=== PATIENT | female | born 1980 | race African-American/Black ===

== ENCOUNTER 2017-06-29 03:33 | Inpatient (IN) | payer MEDICAID, SELFPAY ==
[2017-06-29] MEDS ORDERED: Sodium Chloride 0.9% 10 ML Syringe FLUSH PRN (10:48)
[2017-06-29] MEDS ORDERED: Nalbuphine 20 MG/1 ML Amp IVPUSH PRN (10:48)
[2017-06-29] MEDS ORDERED: Ondansetron 4 MG/2 ML SDV IVPUSH PRN (10:50)
[2017-06-29] MEDS ORDERED: Oxytocin/Lactated Ringers 10 UNIT/1,000 ML BAG IV SCH ×2 (11:00)
[2017-06-29] MEDS ORDERED: Misoprostol 25 MCG (1/4 of 100 MCG) Tab ONE (11:22)
[2017-06-29] MEDS ORDERED: Ampicillin 2 GM in Sodium Chloride 0.9% 100 ML IV ONE (11:30)
[2017-06-29] MEDS: Misoprostol 25 MCG (1/4 of 100 MCG) Tab VAG SCH ×3 (11:33→18:00)
[2017-06-29] MEDS: Lactated Ringers 1,000 ML IV SCH ×2 (17:45→21:09)
[2017-06-29] MEDS ORDERED: ePHEDrine 50 MG/ML SDV IVPUSH PRN (18:14)
[2017-06-29] MEDS ORDERED: diphenhydrAMINE 50 MG/ML SDV IVPUSH PRN (18:14)
[2017-06-29] MEDS ORDERED: fentaNYL 100 MCG/2 ML SDV EPIDUR PRN (18:14)
[2017-06-29] MEDS ORDERED: Bupivacaine/fentaNYL/NS 100 ML Bag EPIDUR SCH (18:15)
--- NOTE | 2017-06-29 18:46 | PCM.PREANE ---
Preanesthetic Assessment - Anesthesia/Transfusion/Family Hx Anesthesia History: Prior Anesthesia Without Reaction Family History of Anesthesia Reaction: No Transfusion History: No Prior Transfusion(s) - Review of Systems General: No Symptoms Pulmonary: No Symptoms Cardiovascular: No Symptoms Gastrointestinal: No Symptoms Neurological: No Symptoms Other: Reports: None - Physical Assessment Pulse: 102 O2 Sat by Pulse Oximetry: 100 Respiratory Rate: 16 Blood Pressure: 148/92 Vital Signs: Last Vital Signs Temp 36.2 C 06/29/17 10:59 Pulse 102 H 06/29/17 16:31 Resp 16 06/29/17 10:59 BP 148/92 H 06/29/17 15:31 Pulse Ox 100 06/29/17 10:59 Height: 1.73 m Weight: 97.931 kg ASA Class: 2 Mental Status: Alert & Oriented x3 Airway Class: Mallampati = 1 Dentition: Reports: Normal Dentition Thyro-Mental Finger Breadths: 3 Mouth Opening Finger Breadths: 3 ROM/Head Extension: Full Lungs: Clear to Auscultation, Normal Respiratory Effort Cardiovascular: Regular Rate, Regular Rhythm - Lab Values: Laboratory Last Values WBC 9.84 K/mm3 (3.98-10.04) 06/29/17 11:08 RBC 3.91 M/mm3 (3.98-5.22) L 06/29/17 11:08 Hgb 9.9 gm/L (11.2-15.7) L 06/29/17 11:08 Hct 29.1 % (34.1-44.9) L 06/29/17 11:08 MCV 74.4 fl (79.4-94.8) L 06/29/17 11:08 MCH 25.3 pg (25.6-32.2) L 06/29/17 11:08 MCHC 34.0 g/dl (32.2-35.5) 06/29/17 11:08 RDW Std Deviation 47.2 fL (36.4-46.3) H 06/29/17 11:08 Plt Count 190 K/mm3 (182-369) 06/29/17 11:08 MPV TNP 06/29/17 11:08 Neut % (Auto) 71.3 % (34.0-71.1) H 06/29/17 11:08 Lymph % (Auto) 20.0 % (19.3-51.7) 06/29/17 11:08 [place] % (Auto) 7.6 % (4.7-12.5) 06/29/17 11:08 Eos % (Auto) 0.8 (0.7-5.8) 06/29/17 11:08 Baso % (Auto) 0.1 % (0.1-1.2) 06/29/17 11:08 Neut # (Auto) 7.01 K/mm3 (1.56-6.13) H 06/29/17 11:08 Lymph # (Auto) 1.97 K/mm3 (1.18-3.74) 06/29/17 11:08 [place] # (Auto) 0.75 K/mm3 (0.24-0.36) H 06/29/17 11:08 Eos # (Auto) 0.08 K/mm3 (0.04-0.36) 06/29/17 11:08 Baso # (Auto) 0.01 K/mm3 (0.01-0.08) 06/29/17 11:08 Manual Slide Review Abnormal smear 06/29/17 11:08 POC Glucose 121 mg/dL (70-105) H 06/29/17 15:40 Blood Type A POSITIVE 06/29/17 11:08 Gel Antibody Screen Negative 06/29/17 11:08 - Allergies Allergies/Adverse Reactions: Allergies Allergy/AdvReac Type Severity Reaction Status Date / Time No Known Allergies Allergy Verified 06/29/17 10:48 - Anesthesia Plan Pre-Op Medication Ordered: None - Acknowledgements Anesthesia Type Planned: Epidural Pt an Appropriate Candidate for the Planned Anesthesia: Yes Alternatives and Risks of Anesthesia Discussed w Pt/Guardian: Yes Pt/Guardian Understands and Agrees with Anesthesia Plan: Yes 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: 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/Metabolic History: Reports: Diabetes, Gestational - SUBSTANCE USE Smoking Status *Q: Never Smoker Recreational Drug Use History: No - HOME MEDS Home Medications: Home Meds Vit W-Ca,Fe,FA(<1 mg) [ Vitamins] 1 tab PO DAILY 06/29/17 [ History] - CURRENT (IN HOUSE) MEDS Current Meds: Current Medications Diphenhydramine HCl (Benadryl) 25 mg IVPUSH Q6H PRN PRN Reason: Itching Ephedrine Sulfate (Ephedrine Sulfate) 5 mg IVPUSH ASDIRECTED PRN PRN Reason: HYPOTENTSION Fentanyl (Sublimaze) 100 mcg EPIDUR Q3H PRN PRN Reason: PAIN Last Admin: 06/29/17 18:34 Dose: 100 mcg Fentanyl/Bupivacaine HCl (Fentanyl/Bupivacaine/Ns 2 Mcg-0.125% 100 Ml) 100 ml EPIDUR ASDIRECTED TWYLA Last Admin: 06/29/17 18:35 Dose: 100 ml Ampicillin Sodium 1 gm/ Sodium (Chloride) 100 mls @ 200 mls/hr IV Q4H TWYLA Lactated Ringer's (Ringers, Lactated) 1,000 mls @ 100 mls/hr IV ASDIRECTED TWYLA Last Admin: 06/29/17 17:45 Dose: 100 mls/hr Oxytocin/Lactated Ringer's (Pitocin In Lr 10 Units/1,000 Ml) 10 unit in 1,000 mls @ 500 mls/hr IV .CONTINUOUS TWYLA Oxytocin/Lactated Ringer's (Pitocin In Lr 10 Units/1,000 Ml) 10 unit in 1,000 mls @ 12 mls/hr IV TITRATE TWYLA; 2 MUNITS/MIN PRN Reason: Protocol Misoprostol (Cytotec) 25 mcg VAG Q4H [facility] Stop: 06/29/17 22:01 Last Admin: 06/29/17 18:00 Dose: Not Given Nalbuphine HCl (Nubain) 10 mg IVPUSH Q2H PRN PRN Reason: Pain (moderate 4-6) Ondansetron HCl (Zofran) 4 mg IVPUSH Q4H PRN PRN Reason: Nausea/Vomiting Sodium Chloride (Saline Flush) 10 ml FLUSH ASDIRECTED PRN PRN Reason: Keep Vein Open Discontinued Medications Ampicillin Sodium 2 gm/ Sodium (Chloride) 100 mls @ 200 mls/hr IV ONETIME ONE Stop: 06/29/17 11:59 Last Admin: 06/29/17 17:46 Dose: 200 mls/hr Misoprostol (Cytotec) Confirm Administered Dose 25 mcg .ROUTE .STK-MED ONE Stop: 06/29/17 11:23 Last Admin: 06/29/17 11:33 Dose: Not Given
[2017-06-29] MEDS: Ampicillin 1 GM in Sodium Chloride 0.9% 100 ML IV SCH (21:12)
[2017-06-30] MEDS: Ampicillin 1 GM in Sodium Chloride 0.9% 100 ML IV SCH ×2 (01:08→11:38)
[2017-06-30] MEDS: Misoprostol 25 MCG (1/4 of 100 MCG) Tab VAG SCH (01:09)
[2017-06-30] MEDS ORDERED: Metoclopramide 10 MG/2 ML SDV IVPUSH ONE (02:33)
[2017-06-30] MEDS ORDERED: Sodium Chloride 0.9% 10 ML Syringe FLUSH PRN (02:33)
[2017-06-30] MEDS ORDERED: Citric Acid/Sodium Citrate Solution 30 ML Cup PO ONE (02:33)
[2017-06-30] MEDS ORDERED: ceFAZolin 2 GM in Premix Bag 1 BAG IV ONE (02:33)
--- NOTE | 2017-06-30 02:39 | PCM.PNLD ---
Labor Progress Note - VS & Meds Vital Signs: Last Vital Signs Temp 36.2 C 06/29/17 10:59 Pulse 102 H 06/29/17 18:46 Resp 16 06/29/17 18:46 BP 148/92 H 06/29/17 18:46 Pulse Ox 100 06/29/17 18:46 Active Medications: Current Medications Diphenhydramine HCl (Benadryl) 25 mg IVPUSH Q6H PRN PRN Reason: Itching Ephedrine Sulfate (Ephedrine Sulfate) 5 mg IVPUSH ASDIRECTED PRN PRN Reason: HYPOTENTSION Fentanyl (Sublimaze) 100 mcg EPIDUR Q3H PRN PRN Reason: PAIN Last Admin: 06/29/17 18:34 Dose: 100 mcg Fentanyl/Bupivacaine HCl (Fentanyl/Bupivacaine/Ns 2 Mcg-0.125% 100 Ml) 100 ml EPIDUR ASDIRECTED TWYLA Last Admin: 06/29/17 18:35 Dose: 100 ml Ampicillin Sodium 1 gm/ Sodium (Chloride) 100 mls @ 200 mls/hr IV Q4H TWYLA Last Admin: 06/30/17 01:08 Dose: 200 mls/hr Lactated Ringer's (Ringers, Lactated) 1,000 mls @ 100 mls/hr IV ASDIRECTED TWYLA Last Admin: 06/29/17 21:09 Dose: 100 mls/hr Oxytocin/Lactated Ringer's (Pitocin In Lr 10 Units/1,000 Ml) 10 unit in 1,000 mls @ 500 mls/hr IV .CONTINUOUS TWYLA Oxytocin/Lactated Ringer's (Pitocin In Lr 10 Units/1,000 Ml) 10 unit in 1,000 mls @ 12 mls/hr IV TITRATE TWYLA; 2 MUNITS/MIN PRN Reason: Protocol Nalbuphine HCl (Nubain) 10 mg IVPUSH Q2H PRN PRN Reason: Pain (moderate 4-6) Ondansetron HCl (Zofran) 4 mg IVPUSH Q4H PRN PRN Reason: Nausea/Vomiting Sodium Chloride (Saline Flush) 10 ml FLUSH ASDIRECTED PRN PRN Reason: Keep Vein Open Discontinued Medications Ampicillin Sodium 2 gm/ Sodium (Chloride) 100 mls @ 200 mls/hr IV ONETIME ONE Stop: 06/29/17 11:59 Last Admin: 06/29/17 17:46 Dose: 200 mls/hr Misoprostol (Cytotec) 25 mcg VAG Q4H TWY[facility] Stop: 06/29/17 22:01 Last Admin: 06/30/17 01:09 Dose: Not Given Misoprostol (Cytotec) Confirm Administered Dose 25 mcg .ROUTE .STK-MED ONE Stop: 06/29/17 11:23 Last Admin: 06/29/17 11:33 Dose: Not Given - Uterine Contractions Contraction Intensity: Moderate to Strong Uterine Resting Tone: Soft - Monitoring Heart Rate (FHR) Variability: Moderate (6-25 bmp) Accelerations: Present, 15x15 - Vaginal Exam Dilation (cm): 4 Effacement (Percent): 100 Station: -3 Cervical Position: Midposition Sterile Vaginal Exam Performed By: Mayra Walter - Labor Progress (Free Text) Labor Progress: Excellent progress with cytotec. SROM meconium stained fluid with cervix check.
--- NOTE | 2017-06-30 02:44 | PCM.LDHP ---
L&D History of Present Illness - General Date of Service: 06/29/17 Admit Problem/Dx: Patient Status Order with Admit Dx/Problem 06/29/17 10:48 Patient Status [ADT] Routine Admission Diagnosis/Problem Admission Diagnosis/Problem Gestational diabetes mellitus Source of Information: Patient, Family, Appraiser - History of Present Illness Introduction:: 36 year old female at 40w1d here for induction of labor for gestational diabetes, age and term . PNC with myself complicated by -gestational diabetes -sickle cell trait -AMA -declined workup History through center director her Danielito. He has translated in clinic as well and we also have used iPad translation which she declines now. 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: Endocrine/Metabolic History: Reports: Diabetes, Gestational Social & Family History - Family History Family Medical History: Noncontributory - Tobacco Use Smoking Status *Q: Never Smoker - Caffeine Use Caffeine Use: Reports: None - Recreational Drug Use Recreational Drug Use: No H&P Review of Systems - Review of Systems: Review Of Systems: See Below General: Reports: No Symptoms HEENT: Reports: No Symptoms Pulmonary: Reports: No Symptoms Cardiovascular: Reports: No Symptoms Gastrointestinal: Reports: No Symptoms Genitourinary: Reports: No Symptoms Musculoskeletal: Reports: No Symptoms Skin: Reports: No Symptoms Psychiatric: Reports: No Symptoms Neurological: Reports: No Symptoms Hematologic/Lymphatic: Reports: No Symptoms Immunologic: Reports: No Symptoms L&D Exam - Exam Exam: See Below - Vital Signs Vital Signs: Last Vital Signs Temp 36.2 C 06/29/17 10:59 Pulse 102 H 06/29/17 18:46 Resp 16 06/29/17 18:46 BP 148/92 H 06/29/17 18:46 Pulse Ox 100 06/29/17 18:46 Weight: 97.931 kg - OB Specific Contraction Intensity: Moderate to Strong Heart Rate (FHR) Variability: Moderate (6-25 bmp) Presentation: Vertex - Doan Score Doan Score Cervix Position: Posterior Doan Score Consistency: Medium Doan Score Effacement: 0-30% Doan Score Dilation: 1-2 cm Doan Score 's Station: -3 Doan Score Total: 2 - Exam General: Alert, Oriented HEENT: PERRLA, Conjunctiva Clear, EACs Clear, EOMI, Hearing Intact, Mucosa Moist & [place], Nares Patent, Normal Nasal Septum, Posterior Pharynx Clear, TMs Clear Neck: Supple, Trachea Midline Lungs: Clear to Auscultation, Normal Respiratory Effort Cardiovascular: Regular Rate, Regular Rhythm GI/Abdominal Exam: Normal Bowel Sounds, Soft, Non-Tender, No Organomegaly, No Distention, No Abnormal Bruit, No Mass, Pelvis Stable Back Exam: Normal Inspection, Full Range of Motion Extremities: Normal Inspection, Normal Range of Motion, Non-Tender, No Pedal Edema, Normal Capillary Refill Skin: Warm, Dry, Intact Neurological: Cranial Nerves Intact, Reflexes Equal Bilateral Psychiatric: Alert, Normal Affect, Normal Mood - Patient Data Lab Results Last 24 hrs: Laboratory Results - last 24 hr 06/29/17 06/29/17 06/29/17 Range/Units 11:08 11:08 15:40 WBC 9.84 (3.98-10.04) K/mm3 RBC 3.91 L (3.98-5.22) M/mm3 Hgb 9.9 L (11.2-15.7) gm/L Hct 29.1 L (34.1-44.9) % MCV 74.4 L (79.4-94.8) fl MCH 25.3 L (25.6-32.2) pg MCHC 34.0 (32.2-35.5) g/dl RDW Std Deviation 47.2 H (36.4-46.3) fL Plt Count 190 (182-369) K/mm3 MPV TNP Neut % (Auto) 71.3 H (34.0-71.1) % Lymph % (Auto) 20.0 (19.3-51.7) % [place] % (Auto) 7.6 (4.7-12.5) % Eos % (Auto) 0.8 (0.7-5.8) Baso % (Auto) 0.1 (0.1-1.2) % Neut # (Auto) 7.01 H (1.56-6.13) K/mm3 Lymph # (Auto) 1.97 (1.18-3.74) K/mm3 [place] # (Auto) 0.75 H (0.24-0.36) K/mm3 Eos # (Auto) 0.08 (0.04-0.36) K/mm3 Baso # (Auto) 0.01 (0.01-0.08) K/mm3 Manual Slide Review Abnormal smear POC Glucose 121 H (70-105) mg/dL Blood Type A POSITIVE Gel Antibody Screen Negative Result Diagrams: 06/29/17 11:08 - Problem List (1) Gestational diabetes mellitus (GDM) affecting , antepartum SNOMED Code(s): 460701540 ICD Code: O24.919 - UNSP DIABETES MELLITUS IN , UNSPECIFIED TRIMESTER Status: Acute Current Visit: Yes (2) Advanced maternal age (AMA) in SNOMED Code(s): 913356728 ICD Code: [id number] - Status: Acute Current Visit: Yes Problem List Initiated/Reviewed/Updated: Yes Orders Last 24hrs: Active Orders 24 hr Category Date Time Status Patient Status [ADT] Routine ADT 06/29/17 10:48 Active Activity as Tolerated [RC] PFP Care 06/29/17 10:48 Active Blood Glucose Check, Bedside [RC] ONETIME Care 06/30/17 02:33 Ordered Communication Order [RC] ASDIRECTED Care 06/29/17 10:48 Active Communication Order [RC] ASDIRECTED Care 06/29/17 18:13 Active Communication Order [RC] ROUTINE Care 06/30/17 02:36 Ordered Cooling Warming Measures [RC] ASDIRECTED Care 06/29/17 18:13 Active Heart Tones [RC] ASDIRECTED Care 06/29/17 10:49 Active Heart Tones [RC] PER UNIT ROUTINE Care 06/30/17 02:36 Ordered Notify Provider [RC] ASDIRECTED Care 06/29/17 18:13 Active Notify Provider [RC] PFP Care 06/29/17 10:48 Active Notify Provider [RC] PRN Care 06/29/17 10:48 Active Oxygen Therapy [RC] ASDIRECTED Care 06/29/17 18:13 Active Peripheral IV Care [RC] . DIRECTED Care 06/29/17 10:49 Active Peripheral IV Care [RC] . DIRECTED Care 06/30/17 02:37 Ordered Procedure Site Prep Instruct [RC] ASDIRECTED Care 06/30/17 02:36 Ordered Pulse Oximetry [RC] ASDIRECTED Care 06/29/17 18:13 Active Urinary Catheter Assessment [RC] ASDIRECTED Care 06/29/17 18:12 Active Urinary Catheter Insertion [Insert Urinary Catheter] [ Care 06/29/17 18:15 Ordered OM.PC] Q24H Verify Patient Consent Obtain [RC] ASDIRECTED Care 06/29/17 18:14 Active Verify Patient Consent Obtain [RC] PER UNIT ROUTINE Care 06/30/17 02:36 Ordered Vital Signs [RC] PER UNIT ROUTINE Care 06/29/17 10:50 Active Vital Signs [RC] PFP Care 06/30/17 02:36 Ordered Regular Diet [DIET] Diet 06/29/17 Lunch Active PATIENT RETYPE [BBK] Stat Lab 06/29/17 11:08 Results TYPE AND SCREEN [BBK] Stat Lab 06/29/17 11:08 Results Ampicillin 1 gm Med 06/29/17 15:30 Active Sodium Chloride 0.9% [Normal Saline] 100 ml IV Q4H Bupivacaine/fentaNYL/NS [fentaNYL/Bupivacaine/NS 2 MCG- Med 06/29/17 18:15 Active 0.125% 100 ML] 100 ml EPIDUR ASDIRECTED Citric Acid/Sodium Citrate [Bicitra Solution] Med 06/30/17 02:33 Once 30 ml PO ONETIME ONE FLU Vacc [id number](6MOS UP)/PF [Flulaval Quad 8528-1000 Med 06/30/17 10:00 Once ] 60 mcg IM ONETIME ONE Lactated Ringers @ 125 MLS/HR(1000ml) Med 06/30/17 02:45 Ordered Lactated Ringers [Ringers, Lactated] 1,000 ml IV ASDIRECTED Lactated Ringers [Ringers, Lactated] 1,000 ml Med 06/29/17 11:00 Active IV ASDIRECTED Metoclopramide [Reglan] Med 06/30/17 02:33 Once 10 mg IVPUSH ONETIME ONE Nalbuphine [Nubain] Med 06/29/17 10:48 Active 10 mg IVPUSH Q2H PRN Ondansetron [Zofran] Med 06/29/17 10:50 Active 4 mg IVPUSH Q4H PRN Oxytocin/Lactated Ringers [Pitocin in LR 10 Units/1,000 Med 06/29/17 11:00 Active ML] 10 unit in 1,000 ml IV .CONTINUOUS Oxytocin/Lactated Ringers [Pitocin in LR 10 Units/1,000 Med 06/29/17 11:00 Active ML] 10 unit in 1,000 ml IV TITRATE Sodium Chloride 0.9% [Saline Flush] Med 06/29/17 10:48 Active 10 ml FLUSH ASDIRECTED PRN Sodium Chloride 0.9% [Saline Flush] Med 06/30/17 02:33 Ordered 10 ml FLUSH ASDIRECTED PRN ceFAZolin [Ancef] 2 gm Med 06/30/17 02:33 Ordered Premix Bag 1 bag IV ONETIME diphenhydrAMINE [Benadryl] Med 06/29/17 18:14 Active 25 mg IVPUSH Q6H PRN ePHEDrine [ePHEDrine Sulfate] Med 06/29/17 18:14 Active 5 mg IVPUSH ASDIRECTED PRN fentaNYL [Sublimaze] Med 06/29/17 18:14 Active 100 mcg EPIDUR Q3H PRN Electronic Heart Tones Ext w TOCO [WOMSER] Ot 06/29/17 10:48 Ordered Routine Electronic Heart Tones Internal [WOMSER] Per Unit Ot 06/29/17 10:48 Ordered Routine Peripheral IV Insertion Adult [OM.PC] Routine Ot 06/29/17 10:48 Ordered Peripheral IV Insertion Adult [OM.PC] Routine Ot 06/30/17 02:36 Ordered Schedule Procedure [COMM] Per Unit Routine Ot 06/30/17 02:36 Ordered Resuscitation Status Routine Resus Stat 06/29/17 10:48 Ordered Medication Orders Citric Acid/Sodium Citrate (Bicitra Solution) 30 ml PO ONETIME ONE Stop: 06/30/17 02:34 Diphenhydramine HCl (Benadryl) 25 mg IVPUSH Q6H PRN PRN Reason: Itching Ephedrine Sulfate (Ephedrine Sulfate) 5 mg IVPUSH ASDIRECTED PRN PRN Reason: HYPOTENTSION Fentanyl (Sublimaze) 100 mcg EPIDUR Q3H PRN PRN Reason: PAIN Last Admin: 06/29/17 18:34 Dose: 100 mcg Fentanyl/Bupivacaine HCl (Fentanyl/Bupivacaine/Ns 2 Mcg-0.125% 100 Ml) 100 ml EPIDUR ASDIRECTED [facility] Last Admin: 06/29/17 18:35 Dose: 100 ml Ampicillin Sodium 1 gm/ Sodium (Chloride) 100 mls @ 200 mls/hr IV Q4H TWY[facility] Last Admin: 06/30/17 01:08 Dose: 200 mls/hr Infusion: 06/29/17 21:42 Dose: 200 mls/hr Admin: 06/29/17 21:12 Dose: 200 mls/hr Lactated Ringer's (Ringers, Lactated) 1,000 mls @ 100 mls/hr IV ASDIRECTED [facility] Last Admin: 06/29/17 21:09 Dose: 100 mls/hr Infusion: 06/29/17 21:09 Dose: 100 mls/hr Admin: 06/29/17 17:45 Dose: 100 mls/hr Oxytocin/Lactated Ringer's (Pitocin In Lr 10 Units/1,000 Ml) 10 unit in 1,000 mls @ 500 mls/hr IV .CONTINUOUS TWYLA Oxytocin/Lactated Ringer's (Pitocin In Lr 10 Units/1,000 Ml) 10 unit in 1,000 mls @ 12 mls/hr IV TITRATE TWYLA; 2 MUNITS/MIN PRN Reason: Protocol Cefazolin Sodium/Dextrose 2 gm (/ Premix) 50 mls @ 100 mls/hr IV ONETIME ONE Stop: 06/30/17 03:02 Lactated Ringer's (Ringers, Lactated) 1,000 mls @ 125 mls/hr IV ASDIRECTED [facility] Metoclopramide HCl (Reglan) 10 mg IVPUSH ONETIME ONE Stop: 06/30/17 02:34 Nalbuphine HCl (Nubain) 10 mg IVPUSH Q2H PRN PRN Reason: Pain (moderate 4-6) Ondansetron HCl (Zofran) 4 mg IVPUSH Q4H PRN PRN Reason: Nausea/Vomiting Sodium Chloride (Saline Flush) 10 ml FLUSH ASDIRECTED PRN PRN Reason: Keep Vein Open Sodium Chloride (Saline Flush) 10 ml FLUSH ASDIRECTED PRN PRN Reason: Keep Vein Open Assessment/Plan Comment:: 36 year old here with induction of labor. Cytotec now. Blood sugars 2 hours post meals and q1-2 hours in active labor Antibiotics for GBS Anticipate unless otherwise indicated.
[2017-06-30] MEDS ORDERED: Lactated Ringers 1,000 ML IV SCH (02:45)
--- NOTE | 2017-06-30 02:49 | PCM.PNLD ---
Labor Progress Note - VS & Meds Vital Signs: Last Vital Signs Temp 36.2 C 06/29/17 10:59 Pulse 102 H 06/29/17 18:46 Resp 16 06/29/17 18:46 BP 148/92 H 06/29/17 18:46 Pulse Ox 100 06/29/17 18:46 Active Medications: Current Medications Diphenhydramine HCl (Benadryl) 25 mg IVPUSH Q6H PRN PRN Reason: Itching Ephedrine Sulfate (Ephedrine Sulfate) 5 mg IVPUSH ASDIRECTED PRN PRN Reason: HYPOTENTSION Fentanyl (Sublimaze) 100 mcg EPIDUR Q3H PRN PRN Reason: PAIN Last Admin: 06/29/17 18:34 Dose: 100 mcg Fentanyl/Bupivacaine HCl (Fentanyl/Bupivacaine/Ns 2 Mcg-0.125% 100 Ml) 100 ml EPIDUR ASDIRECTED TW[facility] Last Admin: 06/29/17 18:35 Dose: 100 ml Ampicillin Sodium 1 gm/ Sodium (Chloride) 100 mls @ 200 mls/hr IV Q4H [facility] Last Admin: 06/30/17 01:08 Dose: 200 mls/hr Lactated Ringer's (Ringers, Lactated) 1,000 mls @ 100 mls/hr IV ASDIRECTED TWY[facility] Last Admin: 06/29/17 21:09 Dose: 100 mls/hr Oxytocin/Lactated Ringer's (Pitocin In Lr 10 Units/1,000 Ml) 10 unit in 1,000 mls @ 500 mls/hr IV .CONTINUOUS TWYLA Oxytocin/Lactated Ringer's (Pitocin In Lr 10 Units/1,000 Ml) 10 unit in 1,000 mls @ 12 mls/hr IV TITRATE TWYLA; 2 MUNITS/MIN PRN Reason: Protocol Cefazolin Sodium/Dextrose 2 gm (/ Premix) 50 mls @ 100 mls/hr IV ONETIME ONE Stop: 06/30/17 03:02 Lactated Ringer's (Ringers, Lactated) 1,000 mls @ 125 mls/hr IV ASDIRECTED [facility] Nalbuphine HCl (Nubain) 10 mg IVPUSH Q2H PRN PRN Reason: Pain (moderate 4-6) Ondansetron HCl (Zofran) 4 mg IVPUSH Q4H PRN PRN Reason: Nausea/Vomiting Sodium Chloride (Saline Flush) 10 ml FLUSH ASDIRECTED PRN PRN Reason: Keep Vein Open Sodium Chloride (Saline Flush) 10 ml FLUSH ASDIRECTED PRN PRN Reason: Keep Vein Open Discontinued Medications Citric Acid/Sodium Citrate (Bicitra Solution) 30 ml PO ONETIME ONE Stop: 06/30/17 02:34 Ampicillin Sodium 2 gm/ Sodium (Chloride) 100 mls @ 200 mls/hr IV ONETIME ONE Stop: 06/29/17 11:59 Last Admin: 06/29/17 17:46 Dose: 200 mls/hr Metoclopramide HCl (Reglan) 10 mg IVPUSH ONETIME ONE Stop: 06/30/17 02:34 Misoprostol (Cytotec) 25 mcg VAG Q4H [facility] Stop: 06/29/17 22:01 Last Admin: 06/30/17 01:09 Dose: Not Given Misoprostol (Cytotec) Confirm Administered Dose 25 mcg .ROUTE .STK-MED ONE Stop: 06/29/17 11:23 Last Admin: 06/29/17 11:33 Dose: Not Given - Uterine Contractions Contraction Intensity: Moderate to Strong Uterine Resting Tone: Soft - Monitoring Heart Rate (FHR) Variability: Moderate (6-25 bmp) Accelerations: Present, 15x15 - Vaginal Exam Dilation (cm): 10 Effacement (Percent): 100 Station: -3 Cervical Position: Midposition Sterile Vaginal Exam Performed By: Mayra Walter Vaginal Exam Comment: Minimal descent with 2 hours of pushing. Significant time that patient also requested to rest. Tired. - Labor Progress (Free Text) Labor Progress: Minimal progress despite complete and pushing. Patient exhausted. Plan proceed with primary section.
[2017-06-30] MEDS ORDERED: Bupivacaine 0.5% 30 ML SDV ONE (02:52)
[2017-06-30] MEDS ORDERED: ceFAZolin 1 GM Vial ONE (03:07)
[2017-06-30] MEDS ORDERED: Phenylephrine 1% 10 MG/ML SDV ONE (03:07)
[2017-06-30] MEDS ORDERED: Morphine PF 10 MG/10 ML SDV ONE (03:08)
[2017-06-30] MEDS ORDERED: Lidocaine 2% with EPINEPHrine 1:200,000 20 ML SDV ONE (03:11)
[2017-06-30] MEDS ORDERED: Ketorolac 30 MG/ML SDV ONE (04:03)
[2017-06-30] MEDS ORDERED: diphenhydrAMINE 50 MG/ML SDV IVPUSH PRN ×2 (04:14→06:33)
[2017-06-30] MEDS ORDERED: fentaNYL 250 MCG/5 ML SDV IVPUSH PRN (04:14)
--- NOTE | 2017-06-30 04:16 | PCM.POSTAN ---
POST ANESTHESIA ASSESSMENT - MENTAL STATUS Mental Status: Alert, Oriented - VITAL SIGNS Pulse Rate: 118 SaO2: 100 Resp Rate: 13 Blood Pressure: 119/104 Temperature: 36.8 C - RESPIRATORY Respiratory Status: Respiratory Rate WNL, Airway Patent, O2 Saturation Stable, Supplemental Oxygen - CARDIOVASCULAR CV Status: Pulse Rate WNL, Blood Pressure Stable - GASTROINTESTINAL GI Status: No Symptoms - PAIN Pain Score: 0 - POST OP HYDRATION Hydration Status: Adequate & Stable - OBSERVATIONS Free Text/Narrative:: no anesthesia complications noted
--- NOTE | 2017-06-30 04:22 | PCM.OPNOTE ---
- General Post-Op/Procedure Note Date of Surgery/Procedure: 06/30/17 Operative Procedure(s): primary section Findings: viable male, weight 8#15oz, vertex, 8/9 APGARs normal uterus tubes and ovaries. [place] urine post procedure Pre Op Diagnosis: failure to descend Post-Op Diagnosis: Same Anesthesia Technique: Epidural Primary Surgeon: Mayra Walter Stevedore Hold: Fredi Mackey Pathology: placenta Fluid Replacement, Intraop: 1,800 Output, Urine Amount: 100 EBL in mLs: 1,100 Complications: None Condition: Good Free Text/Narrative:: Intake & Output 06/29/17 06/29/17 06/30/17 14:59 22:59 06:59 Intake Total 180 Balance 180 The patient was taken to the operating room where epidural anesthesia was dosed to surgical levels without difficulty. The patient was prepped and draped in the usual sterile fashion in the dorsal supine position with a leftward tilt. A Pfannenstiel skin incision was made with the scalpel and carried through to the underlying layer of fascia. The fascia was incised in the midline and extended laterally using Mejia scissors. Shannon clamps were used to elevate the superior aspect of the fascial incision, which was elevated, and the underlying rectus muscles were dissected off bluntly and using Mejia scissors. Attention was then turned to the inferior aspect of the fascial incision, which in similar fashion was grasped with Shannon clamps, elevated, and the underlying rectus muscles were dissected off bluntly and using the mejia. The rectus muscles were dissected in the midline. The peritoneum was entered bluntly; this incision was extended superiorly and inferiorly with good visualization of the bladder. The bladder blade was inserted. The vesicouterine peritoneum was identified and entered sharply using Metzenbaum scissors. This incision was extended laterally and the bladder flap was created digitally. The bladder blade was reinserted. The lower uterine segment was incised in a transverse fashion using the scalpel and with digital traction. Clear fluid was noted. The was subsequently delivered by flexing the head to the incision. Body and shoulders followed without difficulty. The cord was clamped and cut. The was subsequently handed to the awaiting slitter scorer cut off operator whose presence had been requested.. The placenta was delivered spontaneously intact with a three-vessel cord noted. The uterus was exteriorized and cleared of all clots and debris. The uterine incision was repaired in 2 layers using 0 monocryl. Hemostasis was visualized. Hemostasis was visualized bilaterally. The uterus was returned to the abdomen. The uterine incision was reexamined and it was noted to be hemostatic. The pelvis was copiously irrigated. The fascia was closed with 1 PDS suture, and the skin was closed with 3-0 monocryl. Sponge, lap, and instrument counts were correct x2. The patient was stable at the completion of the procedure and was subsequently transferred to the recovery room in stable condition.
[2017-06-30] MEDS ORDERED: Ketorolac 30 MG/ML SDV IVPUSH SCH (06:30)
[2017-06-30] MEDS ORDERED: Docusate Sodium 100 MG Cap PO PRN (06:33)
[2017-06-30] MEDS ORDERED: Dextrose 5%-Lactated Ringers 1,000 ML IV SCH (06:33)
[2017-06-30] MEDS ORDERED: Lanolin 100% Cream 7 GM Tube TOP PRN (06:33)
[2017-06-30] MEDS ORDERED: Naloxone 0.4 MG/ML SDV IVPUSH PRN (06:33)
[2017-06-30] MEDS ORDERED: ePHEDrine 50 MG/ML SDV IVPUSH PRN (06:33)
--- NOTE | 2017-06-30 08:23 | PCM48HPAN ---
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
[2017-06-30] MEDS ORDERED: FLU Vacc QS 2017-18 (6mos UP)/PF 60 MCG/0.5 ML Syringe IM ONE (10:00)
[2017-06-30] MEDS: Prenatal Multivitamin with Calcium/Folic Acid/Iron Tab PO SCH (10:34)
[2017-06-30] MEDS: Simethicone 80 MG Tab.Chew PO SCH ×4 (10:34→22:09)
[2017-06-30] MEDS: Ketorolac 30 MG/ML SDV IVPUSH SCH ×2 (16:15→22:10)
[2017-06-30] MEDS ORDERED: Bupivacaine 0.25% 10 ML SDV ONE (22:22)
[2017-07-01] MEDS: Acetaminophen/oxyCODONE 325-5 MG Tab PO PRN ×3 (01:10→18:44)
[2017-07-01] MEDS ORDERED: Ibuprofen 600 MG Tab PO PRN (04:00)
[2017-07-01] MEDS: Simethicone 80 MG Tab.Chew PO SCH ×4 (11:55→21:48)
[2017-07-01] MEDS: Prenatal Multivitamin with Calcium/Folic Acid/Iron Tab PO SCH (12:31)
[2017-07-02 02:57] VITALS: BP 136/78
[2017-07-02] MEDS: Acetaminophen/oxyCODONE 325-5 MG Tab PO PRN (07:08)
--- NOTE | 2017-07-02 07:10 | PCM.DCSUM1 ---
Discharge Summary - Hospital Course Brief History: Term after failure to descend - Discharge Data Discharge Date: 07/02/17 Discharge Disposition: Home, Self-Care 01 Condition: Good - Discharge Diagnosis/Problem(s) (1) Gestational diabetes mellitus (GDM) affecting , antepartum SNOMED Code(s): 705035013 ICD Code: O24.919 - UNSP DIABETES MELLITUS IN , UNSPECIFIED TRIMESTER Status: Acute Current Visit: Yes (2) Advanced maternal age (AMA) in SNOMED Code(s): 723224955 ICD Code: [id number] - Status: Acute Current Visit: Yes - Patient Summary/Data Operative Procedure(s) Performed: primary section - Patient Instructions Diet: Usual Diet as Tolerated Activity: No Strenuous Activities Driving: Do Not Drive Showering/Bathing: May Shower Notify Provider of: Fever, Increased Pain, Swelling and Redness, Drainage, Nausea and/or Vomiting - Discharge Plan Home Medications: Home Meds Vit W-Ca,Fe,FA(<1 mg) [ Vitamins] 1 tab PO DAILY 06/29/17 [ History] Referrals: Mayra Walter MD [Primary Care Provider] - (2 and 6 weeks) - Discharge Summary/Plan Comment DC Time >30 min.: No - General Info Date of Service: 07/02/17 Functional Status: Reports: Pain Controlled - Review of Systems General: Reports: No Symptoms HEENT: Reports: No Symptoms Pulmonary: Reports: No Symptoms Cardiovascular: Reports: No Symptoms Gastrointestinal: Reports: No Symptoms Genitourinary: Reports: No Symptoms Musculoskeletal: Reports: No Symptoms Skin: Reports: No Symptoms Neurological: Reports: No Symptoms Psychiatric: Reports: No Symptoms - Patient Data Vitals - Most Recent: Last Vital Signs Temp 36.1 C 07/02/17 02:25 Pulse 89 07/02/17 02:25 Resp 14 07/02/17 02:25 BP 136/78 07/02/17 02:25 Pulse Ox 98 07/02/17 02:25 Weight - Most Recent: 97.931 kg I&O - Last 24 hours: Intake & Output 07/01/17 07/02/17 07/02/17 22:59 06:59 14:59 Intake Total 0 Balance 0 Lab Results - Last 24 hrs: Laboratory Results - last 24 hr 07/01/17 Range/Units 06:25 Manual Slide Review Abnormal smear Med Orders - Current: Current Medications Diphenhydramine HCl (Benadryl) 25 mg IVPUSH Q6H PRN PRN Reason: Itching Diphenhydramine HCl (Benadryl) 25 mg IVPUSH Q6H PRN PRN Reason: Itching or Nausea Docusate Sodium (Colace) 100 mg PO Q12H PRN PRN Reason: Constipation Last Admin: 07/01/17 21:48 Dose: 100 mg Emollient Ointment (Lansinoh Hpa) 0 gm TOP ASDIRECTED PRN PRN Reason: Sore Nipples Ephedrine Sulfate (Ephedrine Sulfate) 5 mg IVPUSH SEECOMMENT PRN PRN Reason: Other Fentanyl (Sublimaze) 50 mcg IVPUSH Q5M PRN PRN Reason: PAIN Ibuprofen (Motrin) 600 mg PO Q6H PRN PRN Reason: mild pain or fever Naloxone HCl (Narcan) 0.1 mg IVPUSH SEECOMMENT PRN PRN Reason: Respiratory Depression Oxycodone/Acetaminophen (Percocet 325-5 Mg) 1 tab PO Q6H PRN PRN Reason: Pain (moderate 4-6) Last Admin: 07/01/17 18:44 Dose: 1 tab Prenat Multivit/Magneto Repairer/Iron/Folic Ac ( Plus Iron) 1 each PO DAILY TWYLA Last Admin: 07/01/17 12:31 Dose: 1 each Simethicone (Simethicone) 80 mg PO PCBED [facility] Last Admin: 07/01/17 21:48 Dose: 80 mg Discontinued Medications Bupivacaine HCl (Marcaine 0.5%) Confirm Administered Dose 30 ml .ROUTE .STK-MED ONE Stop: 06/30/17 02:53 Last Admin: 06/30/17 03:29 Dose: 20 ml Bupivacaine HCl (Sensorcaine-Mpf 0.25%) 10 ml .ROUTE .STK-MED ONE Stop: 06/30/17 22:23 Cefazolin Sodium (Ancef) Confirm Administered Dose 2 gm .ROUTE .STK-MED ONE Stop: 06/30/17 03:08 Citric Acid/Sodium Citrate (Bicitra Solution) 30 ml PO ONETIME ONE Stop: 06/30/17 02:34 Last Admin: 06/30/17 06:32 Dose: 30 ml Diphenhydramine HCl (Benadryl) 25 mg IVPUSH Q6H PRN PRN Reason: Itching Ephedrine Sulfate (Ephedrine Sulfate) 5 mg IVPUSH ASDIRECTED PRN PRN Reason: HYPOTENTSION Fentanyl (Sublimaze) 100 mcg EPIDUR Q3H PRN PRN Reason: PAIN Last Admin: 06/29/17 18:34 Dose: 100 mcg Fentanyl/Bupivacaine HCl (Fentanyl/Bupivacaine/Ns 2 Mcg-0.125% 100 Ml) 100 ml EPIDUR ASDIRECTED TWYLA Last Admin: 06/29/17 18:35 Dose: 100 ml Ampicillin Sodium 2 gm/ Sodium (Chloride) 100 mls @ 200 mls/hr IV ONETIME ONE Stop: 06/29/17 11:59 Last Admin: 06/29/17 17:46 Dose: 200 mls/hr Ampicillin Sodium 1 gm/ Sodium (Chloride) 100 mls @ 200 mls/hr IV Q4H [facility] Last Admin: 06/30/17 11:38 Dose: Not Given Lactated Ringer's (Ringers, Lactated) 1,000 mls @ 100 mls/hr IV ASDIRECTED [facility] Last Admin: 06/29/17 21:09 Dose: 100 mls/hr Oxytocin/Lactated Ringer's (Pitocin In Lr 10 Units/1,000 Ml) 10 unit in 1,000 mls @ 500 mls/hr IV .CONTINUOUS TWYLA Oxytocin/Lactated Ringer's (Pitocin In Lr 10 Units/1,000 Ml) 10 unit in 1,000 mls @ 12 mls/hr IV TITRATE TWYLA; 2 MUNITS/MIN PRN Reason: Protocol Cefazolin Sodium/Dextrose 2 gm (/ Premix) 50 mls @ 100 mls/hr IV ONETIME ONE Stop: 06/30/17 03:02 Last Admin: 06/30/17 11:38 Dose: Not Given Lactated Ringer's (Ringers, Lactated) 1,000 mls @ 125 mls/hr IV ASDIRECTED [facility] Dextrose/Lactated Ringer's (Dextrose 5%-Lactated Ringers) 1,000 mls @ 125 mls/ hr IV ASDIRECTED [facility] Stop: 06/30/17 14:32 Last Admin: 06/30/17 11:39 Dose: Not Given Ketorolac Tromethamine (Toradol) Confirm Administered Dose 30 mg .ROUTE .STK- MED ONE Stop: 06/30/17 04:04 Ketorolac Tromethamine (Toradol) 30 mg IVPUSH Q6H [facility] Stop: 06/30/17 18:31 Last Admin: 06/30/17 10:38 Dose: 30 mg Ketorolac Tromethamine (Toradol) 30 mg IVPUSH Q6H TWYLA Stop: 06/30/17 22:01 Last Admin: 06/30/17 22:10 Dose: 30 mg Lidocaine/Epinephrine (Xylocaine-Mpf 2%-Epi 1:200,000) Confirm Administered Dose 20 ml .ROUTE .STK-MED ONE Stop: 06/30/17 03:12 Metoclopramide HCl (Reglan) 10 mg IVPUSH ONETIME ONE Stop: 06/30/17 02:34 Last Admin: 06/30/17 06:32 Dose: 10 mg Misoprostol (Cytotec) 25 mcg VAG Q4H [facility] Stop: 06/29/17 22:01 Last Admin: 06/30/17 01:09 Dose: Not Given Misoprostol (Cytotec) Confirm Administered Dose 25 mcg .ROUTE .STK-MED ONE Stop: 06/29/17 11:23 Last Admin: 06/29/17 11:33 Dose: Not Given Morphine Sulfate (Duramorph Pf) Confirm Administered Dose 10 mg .ROUTE .STK-MED ONE Stop: 06/30/17 03:09 Nalbuphine HCl (Nubain) 10 mg IVPUSH Q2H PRN PRN Reason: Pain (moderate 4-6) Ondansetron HCl (Zofran) 4 mg IVPUSH Q4H PRN PRN Reason: Nausea/Vomiting Phenylephrine HCl (Ankur-Synephrine) Confirm Administered Dose 10 mg .ROUTE .STK- MED ONE Stop: 06/30/17 03:08 Sodium Chloride (Saline Flush) 10 ml FLUSH ASDIRECTED PRN PRN Reason: Keep Vein Open Sodium Chloride (Saline Flush) 10 ml FLUSH ASDIRECTED PRN PRN Reason: Keep Vein Open - Exam General: Reports: Alert, Oriented HEENT: Reports: Pupils Equal, Pupils Reactive, EOMI, Mucous Membr. Moist/[place] Neck: Reports: Supple Lungs: Reports: Clear to Auscultation, Normal Respiratory Effort Cardiovascular: Reports: Regular Rate, Regular Rhythm GI/Abdominal Exam: Normal Bowel Sounds, Soft, Non-Tender, No Organomegaly, No Distention, No Abnormal Bruit, No Mass, Pelvis Stable (Female) Exam: Normal External Exam, Normal Speculum Exam, Normal Bimanual Exam Back Exam: Reports: Normal Inspection, Full Range of Motion Extremities: Normal Inspection, Normal Range of Motion, Non-Tender, No Pedal Edema, Normal Capillary Refill Skin: Reports: Warm, Dry, Intact Wound/Incisions: Reports: Healing Well Neurological: Reports: No New Focal Deficit Psy/Mental Status: Reports: Alert, Normal Affect, Normal Mood *Q Meaningful Use (DIS) - VTE *Q VTE Criteria *Q: - Stroke *Q Stroke Criteria *Q: - AMI *Q AMI Criteria *Q:
[2017-07-02] MEDS: Prenatal Multivitamin with Calcium/Folic Acid/Iron Tab PO SCH (11:21)
[2017-07-02] MEDS: Simethicone 80 MG Tab.Chew PO SCH (11:21)
== END 2017-07-02 10:50 | disposition home or self-care (01) | DRG 766 ==
LOC: JD.OB 03:33 → OBSVTOIN 06-30 03:33 → JD.OB 06-30 03:33
PROVIDERS: ADMIT Obstetrics & Gynecology; ATTEND Obstetrics & Gynecology
PROC: 00HU33Z Insertion of Infusion Device into Spinal Canal, Percutaneous Approach (ICD-10-PCS; 2017-06-29)
PROC: 3E0R3CZ (ICD-10-PCS; 2017-06-29)
PROC: 3E0P7GC Introduction of Other Therapeutic Substance into Female Reproductive, Via Natural or Artificial Opening (ICD-10-PCS; 2017-06-29)
PROC: 10D00Z1 Extraction of Products of Conception, Low, Open Approach (ICD-10-PCS; principal; 2017-06-30)
DX: O24.429 Gestational diabetes mellitus in childbirth, unspecified control (principal); O99.02 Anemia complicating childbirth; D57.3 Sickle-cell trait; O99.824 Streptococcus B carrier state complicating childbirth; O77.0 Labor and delivery complicated by meconium in amniotic fluid; O32.4XX0 Maternal care for high head at term, not applicable or unspecified; Z3A.40 40 weeks gestation of pregnancy; Z37.0 Single live birth
CPT/HCPCS: 01967; 01968; 36415; 51702; 82962; 85025; 86850; 86900; 86901; 90686; A9270-GY; J0290; J0690; J1885; J2270; J2370; J2765; J3010; J7030; J7120